=== PATIENT | male | born 1945 | race Caucasian/White ===

== ENCOUNTER 2020-03-09 06:00 | Outpatient (CLI) | payer OTHER | END 2020-03-09 06:05 | disposition home or self-care (01) | LOC: LAB 06:00 → ADM 12:30 → AMB-ENDOS 03-14 12:30 → EDSTATUS 03-14 12:30 → ADM 03-14 12:30 | PROVIDERS: ATTEND Surgery | DX: K57.30 Diverticulosis of large intestine without perforation or abscess without bleeding (principal); Z86.010 Personal history of colon polyps; Z03.818 Encounter for observation for suspected exposure to other biological agents ruled out ==

== ENCOUNTER 2020-05-02 07:46 | Day surgery (SDC) | payer OTHER | END 2020-05-02 12:05 | disposition home or self-care (01) | LOC: AMB-ENDOS 07:46 | PROVIDERS: ATTEND Surgery | DX: K62.89 Other specified diseases of anus and rectum (principal); K64.8 Other hemorrhoids; Z20.828 Contact with and (suspected) exposure to other viral communicable diseases ==